=== PATIENT | male | born 1960 | race Caucasian/White ===

== ENCOUNTER 2024-11-21 06:13 | Day surgery (SDC) | payer BC, SELFPAY | END 2024-11-21 09:34 | disposition home or self-care (01) | LOC: GI 06:13 | PROVIDERS: ATTENDING PHYSICIAN Specialist | DX: Z12.11 Encounter for screening for malignant neoplasm of colon (principal); K64.8 Other hemorrhoids; K57.30 Diverticulosis of large intestine without perforation or abscess without bleeding; Z83.719 Family history of colon polyps, unspecified | CPT/HCPCS: G0105 ==